=== PATIENT | female | born 1970 | race Caucasian/White ===

== ENCOUNTER 2019-04-11 11:48 | Emergency (ER) | payer OTHER ==
[~2019-04-11] VITALS: Ht 165.1 cm; Wt 88.5 kg
[~2019-04-11 11:48] MED LIST: DICLOFENAC SODI75 MG PO; ESTRACE0.5 MG PO; HYDROCODON-ACE1 EA10 PO; LEVOTHYROXINE100 MCG PO; METFORMIN HCL500 M3 PO; METFORMIN HCL750 MG PO
== END 2019-04-11 16:38 | disposition home or self-care (01) ==
LOC: ED 11:48
DX: J10.1 Influenza due to other identified influenza virus with other respiratory manifestations (principal); E11.9 Type 2 diabetes mellitus without complications; E03.9 Hypothyroidism, unspecified; Z88.8 Allergy status to other drugs, medicaments and biological substances; Z79.899 Other long term (current) drug therapy; Z79.84 Long term (current) use of oral hypoglycemic drugs
CPT/HCPCS: 70450; 80053; 85025; 87502; 96361; 96374; 99284-25; J2060; J7121